=== PATIENT | male | born 1935 | race Caucasian/White ===

== ENCOUNTER 2017-05-06 18:53 | Emergency (ER) | payer OTHER ==
[~2017-05-06] VITALS: Ht 172.7 cm; Wt 69.9 kg
[2017-05-06 19:05] VITALS: BP_SYST 146
[2017-05-06] MEDS ORDERED: TAMS-11 PO (19:54)
[2017-05-06] MEDS ORDERED: NOR10 PO (19:54)
[2017-05-06] MEDS ORDERED: ASA81 PO (19:54)
[2017-05-06] MEDS ORDERED: TEMA15CA51 PO (19:54)
[2017-05-06] MEDS ORDERED: ATEN-41 PO (19:54)
[2017-05-06] MEDS ORDERED: GLU500 PO (19:54)
[2017-05-06] MEDS ORDERED: OMEP40CA33 PO (19:54)
[2017-05-06] MEDS ORDERED: CLOP75TA2 PO (19:54)
[2017-05-06] MEDS ORDERED: LIP80 PO (19:54)
[2017-05-06] MEDS ORDERED: GLIP10TA11 PO (19:54)
[2017-05-06] MEDS ORDERED: LOSA50TA3 PO (19:54)
[2017-05-06] MEDS ORDERED: FINA5TAB3 PO (19:54)
[2017-05-06 21:07] VITALS: BP_SYST 146
== END 2017-05-06 20:17 | disposition home or self-care (01) ==
LOC: SED 18:53
DX: S51.012A Laceration without foreign body of left elbow, initial encounter (principal); S00.81XA Abrasion of other part of head, initial encounter; E11.9 Type 2 diabetes mellitus without complications; I10 Essential (primary) hypertension; N40.0 Benign prostatic hyperplasia without lower urinary tract symptoms; Z95.9 Presence of cardiac and vascular implant and graft, unspecified; Z79.82 Long term (current) use of aspirin; Z79.899 Other long term (current) drug therapy; W01.10XA Fall on same level from slipping, tripping and stumbling with subsequent striking against unspecified object, initial encounter; Y93.89 Activity, other specified; Y92.89 Other specified places as the place of occurrence of the external cause; Y99.8 Other external cause status
CPT/HCPCS: 70450-TC; 99284

== ENCOUNTER 2019-01-23 18:11 | Emergency (ER) | payer OTHER ==
[~2019-01-23] VITALS: Ht 172.7 cm; Wt 68.5 kg
[~2019-01-23 18:11] MED LIST: ASA81 PO; ATEN-41 PO; CLOP75TA2 PO; FINA5TAB3 PO; GLIP10TA11 PO; GLU500 PO; LIP80 PO; LOSA50TA3 PO; NOR10 PO; OMEP40CA33 PO; TAMS-11 PO; TEMA15CA5 PO
[2019-01-23 18:14] VITALS: BP_SYST 162
[2019-01-23 21:15] VITALS: BP_SYST 162
== END 2019-01-23 21:15 | disposition home or self-care (01) ==
LOC: SED 18:11
DX: S20.211A Contusion of right front wall of thorax, initial encounter (principal); E11.9 Type 2 diabetes mellitus without complications; I10 Essential (primary) hypertension; N40.0 Benign prostatic hyperplasia without lower urinary tract symptoms; Z79.82 Long term (current) use of aspirin; Z79.899 Other long term (current) drug therapy; W18.09XA Striking against other object with subsequent fall, initial encounter; Y93.89 Activity, other specified; Y92.89 Other specified places as the place of occurrence of the external cause; Y99.8 Other external cause status
CPT/HCPCS: 71045; 71100; 99283